=== PATIENT | male | born 1975 | race Caucasian/White ===

== ENCOUNTER 2019-12-29 18:15 | Observation (INO) | payer BC ==
[2019-12-29] MEDS ORDERED: NA CHLORIDE 0.9% 500 ML ONE (19:38)
[2019-12-29] MEDS ORDERED: dexAMETHasone 4 MG/ML VIAL ONE (19:38)
--- NOTE | 2019-12-29 20:08 | RAD REPORT ---
EXAM DESCRIPTION: Chris Single View12/29/2019 7:58 pm CLINICAL HISTORY: Cough COMPARISON: none FINDINGS: Moderate bilateral patchy lung opacities The heart is normal size IMPRESSION: Moderate bilateral patchy lung opacities may represent Covid pneumonia
[2019-12-29 20:18] LABS: Absolute Lymphocytes (CBC) 0.7 K/uL (0.7-4.9); Basophils % 0.1 % (0-1.3); Hematocrit 46.8 % (39.6-49.0); Lymphocytes % 5.9 % (15.3-44.8); MPV 8.5 fL (7.6-11.3); RBC Red Blood Cell Count 5.66 M/uL (4.33-5.43)
[2019-12-29 20:26] LABS: Protime INR 1.03
[2019-12-29 20:32] LABS: BUN Blood Urea Nitrogen 21 mg/dL (7-18); Bicarbonate 24 mmol/L (21-32); Glucose Level 220 mg/dL (74-106); NT PRO-BNP 88 pg/mL (<125); Potassium 4.4 mmol/L (3.5-5.1); Sodium Level 134 mmol/L (136-145); Troponin (Emerg Dept Use Only) < 0.02 ng/mL (0.0-0.045)
[2019-12-29 20:44] LABS: Blood Morphology Comment NOT SEEN (NOT SEEN); Platelet Estimate ADEQ
--- NOTE | 2019-12-29 21:01 | RAD REPORT ---
EXAM DESCRIPTION: CT - Chest For Pe Angio - 12/29/2019 8:45 pm CLINICAL HISTORY: Shortness of breath COMPARISON: None. TECHNIQUE: Dynamically enhanced axial 3 mm thick images of the chest were obtained during administra tion of <100> mL Isovue 370 IV contrast. Coronal and oblique reconstruction images were generated and reviewed. Exam utilizes a protocol for optimal evaluation of pulmonary arterial tree. Maximum intensity projections 3D imaging was utilized All CT scans are performed using dose optimization technique as appropriate and may include automated exposure control or mA/KV adjustment according to patient size. FINDINGS: The opacification of pulmonary arteries is suboptimal. No gross pulmonary embolus noted A thoracic aortic aneurysm is not noted. A pleural effusion is not seen. A pericardial effusion is not seen. Moderate bilateral patchy predominantly ground-glass opacities Gallbladder is filled with gallstones. The gallbladder wall is not thickened IMPRESSION: No gross evidence of a pulmonary embolism Moderate patchy predominantly ground-glass opacities within the lungs may represent Covid pneumonia.
--- NOTE | 2019-12-29 21:27 | EDPHYS ---
Physician Documentation [facility] Name: Sebastian Riojas Age: 44 yrs Sex: Male : 1975 Arrival Date: 12/29/2019 Time: 18:18 Bed 6 Private MD: ED Physician Sudheer Lara HPI: 12/28 19:42 This 44 yrs old Male presents to ER via Wheelchair with complaints of rn Breathing Difficulty, COVID+. 19:42 The patient has shortness of breath at rest, with light activity. Onset: The rn symptoms/episode began/occurred 11 day(s) ago. The patient's shortness of breath is aggravated by exertion, light activity. Severity of symptoms: At their worst the symptoms were moderate in the emergency department the symptoms are unchanged. The patient has not experienced similar symptoms in the past. The patient has been recently seen by a physician:. Historical: - Allergies: 18:31 No Known Allergies; jd3 - Home Meds: 18:31 Farxiga oral oral [Active]; Lisinopril Oral [Active]; ezetimibe oral oral [Active]; jd3 pioglitazone oral oral [Active]; - PMHx: 18:31 Diabetes - NIDDM; Hypertension; High Cholesterol; jd3 - Immunization history:: Adult Immunizations up to date. - Social history:: Smoking status: Patient/guardian denies using tobacco, but has a distant history of tobacco abuse. - Family history:: not pertinent. - Hospitalizations: : No recent hospitalization is reported. ROS: 19:42 Constitutional: Negative for fever, chills, and weight loss, Eyes: Negative for injury, rn pain, redness, and discharge, Neck: Negative for injury, pain, and swelling, Cardiovascular: Negative for chest pain, palpitations, and edema, Respiratory: + sob and cough Abdomen/GI: Negative for abdominal pain, nausea, vomiting, diarrhea, and constipation, MS/Extremity: Negative for injury and deformity, Skin: Negative for injury, rash, and discoloration, Neuro: + generalized weakness Exam: 19:42 Constitutional: This is a well developed, well nourished patient who is awake, alert, rn mild tachypnea Head/Face: Normocephalic, atraumatic. Eyes: Pupils equal round and reactive to light, extra-ocular motions intact. Lids and lashes normal. Conjunctiva and sclera are non-icteric and not injected. Cornea within normal limits. Periorbital areas with no swelling, redness, or edema. ENT: NO stridor Cardiovascular: Tachycardic, regular Respiratory: Mild tachypnea, no retractions Abdomen/GI: soft, non-tender Skin: Warm, dry MS/ Extremity: Pulses equal, no cyanosis. Neurovascular intact. Full, normal range of motion. Equal circumference. Neuro: Awake and alert, GCS 15 Vital Signs: 18:31 BP 126 / 70; Pulse 122; Resp 25 S; Temp 98.7(O); Pulse Ox 92% on R/A; Weight 112.49 kg jd3 (R); Height 5 ft. 10 in. (177.80 cm) (R); Pain 0/10; 19:01 Pulse 115; Pulse Ox 96% on 2 lpm NC; jd3 20:28 BP 126 / 59; Pulse 106; Resp 20; Pulse Ox 94% on 2 lpm NC; mg2 21:25 BP 121 / 90; Pulse 94; Resp 20; Pulse Ox 94% on 2 lpm NC; mg2 18:31 Body Mass Index 35.58 (112.49 kg, 177.80 cm) jd3 MDM: 19:02 Patient medically screened. rn 21:25 Differential diagnosis: pneumonia, COVID-19 pneumonia, PE. Data reviewed: vital signs, rn nurses notes, lab test result(s), EKG, radiologic studies, CT scan, plain films, and as a result, I will admit patient. Counseling: I had a detailed discussion with the patient and/or guardian regarding: the historical points, exam findings, and any diagnostic results supporting the discharge/admit diagnosis, lab results, radiology results, the need for further work-up and treatment in the hospital. Response to treatment: the patient's symptoms have mildly improved after treatment, and as a result, I will admit patient. Admission orders: after a detailed discussion of the patient's condition and case, the admit orders are written by me. ED course: Pt with O2 sats 91% on 2L NC, + COVID-19 pneumonia, neg for PE. . 12/28 19:22 Order name: Blood Culture Adult (2) rn 12/28 18: Order name: BMP; Complete Time: 20:48 rn 10/30 19:22 Order name: CBC with Diff; Complete Time: 20:48 rn 12/28 19:22 Order name: D-Dimer; Complete Time: 20:48 rn 12/28 19:22 Order name: NT PRO-BNP; Complete Time: 20:48 rn 12/28 19:22 Order name: PT-INR; Complete Time: 20:48 rn 12/28 19:22 Order name: XRAY CXR (1 view); Complete Time: 20:13 rn 12/28 19:22 Order name: Ptt, Activated; Complete Time: 20:48 rn 12/28 19:22 Order name: Troponin (emerg Dept Use Only); Complete Time: 20:48 rn 12/28 19:22 Order name: Procalcitonin; Complete Time: 21:27 rn 12/28 19:22 Order name: Blood Culture [facility] 12/28 20:14 Order name: CT Chest For PE Angio; Complete Time: 21:02 rn 12/28 20:22 Order name: Manual Differential; Complete Time: 20:48 [facility] 12/28 19:22 Order name: EKG; Complete Time: 19:22 rn 12/28 19:22 Order name: Cardiac monitoring; Complete Time: 20:08 rn 12/28 19:22 Order name: EKG - Nurse/Tech; Complete Time: 20:25 rn 12/28 19:22 Order name: IV Saline Lock; Complete Time: 20:08 rn 12/28 19:22 Order name: Labs collected and sent; Complete Time: 20:25 rn 12/28 19:22 Order name: O2 Per Protocol; Complete Time: 20:25 rn 12/28 19:22 Order name: O2 Sat Monitoring; Complete Time: 20:25 rn Administered Medications: 20:00 Drug: Decadron - Dexamethasone 10 mg Route: IVP; Site: right antecubital; mg2 22:20 Follow up: Response: No adverse reaction mg2 20:07 Drug: NS 0.9% 500 ml Route: IV; Rate: bolus; Site: right antecubital; mg2 22:19 Follow up: Response: No adverse reaction; IV Status: Completed infusion; IV Intake: mg2 500ml Disposition: 12/29/19 21:27 Hospitalization ordered by Kevin Castañeda for Inpatient Admission. Preliminary diagnosis are Coronavirus infection, unspecified, Viral pneumonia, not elsewhere classified - COVID-19, Hypoxemia. - Bed requested for Intensive Care Unit. - Status is Inpatient Admission. mg2 - Condition is Stable. - Problem is new. - Symptoms have improved. Signatures: Dispatcher [employer] EDMS Sudheer Lara MD MD rn Aj Devlin, FORM SETTER STEEL PAN FORMS-C FORM SETTER STEEL PAN FORMS-Cla1 Marley Trimble, RN RN cg Dima Jenkins, RN RN jd3 Aren Mcneal RN RN mg2 Corrections: (The following items were deleted from the chart) 22:16 21:27 Hospitalization Ordered by Kevin Castañeda DO for Inpatient Admission. Preliminary cg diagnosis is Coronavirus infection, unspecified; Viral pneumonia, not elsewhere classified - COVID-19; Hypoxemia. Bed requested for Telemetry/MedSurg (Inpatient). Status is Inpatient Admission. Condition is Stable. Problem is new. Symptoms have improved. rn 22:28 22:16 12/29/2019 21:27 Hospitalization Ordered by Kevin Castañeda DO for Inpatient mg2 Admission. Preliminary diagnosis is Coronavirus infection, unspecified; Viral pneumonia, not elsewhere classified - COVID-19; Hypoxemia. Bed requested for Intensive Care Unit. Status is Inpatient Admission. Condition is Stable. Problem is new. Symptoms have improved. cg
--- NOTE | 2019-12-29 21:27 | ER ---
Nurse's Notes [facility] Name: Sebastian Riojas Age: 44 yrs Sex: Male : 1975 Arrival Date: 12/29/2019 Time: 18:18 Bed 6 Private MD: Diagnosis: Coronavirus infection, unspecified;Viral pneumonia, not elsewhere [id number];Hypoxemia Presentation: 12/28 18:28 Chief complaint: Spouse and/or significant other states: "He has been sick for 11 days jd3 and he was tested + for COVID as of today and he hasn't been able to catch his breath. most of the other symptoms have been getting better though.". Coronavirus screen: cough unrelated to allergies, difficulty breathing, Client presents with at least one sign or symptom that may indicate coronavirus-19. Standard/surgical mask placed on the client. Provider contacted for isolation considerations. Client reports previous positive COVID test result. results today. Ebola Screen: Patient negative for fever greater than or equal to 101.5 degrees Fahrenheit, and additional compatible Ebola Virus Disease symptoms. Initial Sepsis Screen: Does the patient meet any 2 criteria? No. Patient's initial sepsis screen is negative. Does the patient have a suspected source of infection? No. Patient's initial sepsis screen is negative. Risk Assessment: Do you want to hurt yourself or someone else? Patient reports no desire to harm self or others. Onset of symptoms was December 18, 2019. 18:28 Method Of Arrival: Wheelchair jd3 18:28 Acuity: GENO 2 jd3 Triage Assessment: 20:27 General: Behavior is calm, cooperative. Respiratory: Onset: The symptoms/episode mg2 began/occurred gradually, the patient has mild shortness of breath. Historical: - Allergies: 18:31 No Known Allergies; jd3 - Home Meds: 18:31 Farxiga oral oral [Active]; Lisinopril Oral [Active]; ezetimibe oral oral [Active]; jd3 pioglitazone oral oral [Active]; - PMHx: 18:31 Diabetes - NIDDM; Hypertension; High Cholesterol; jd3 - Immunization history:: Adult Immunizations up to date. - Social history:: Smoking status: Patient/guardian denies using tobacco, but has a distant history of tobacco abuse. - Family history:: not pertinent. - Hospitalizations: : No recent hospitalization is reported. Screenin:27 Abuse screen: Denies threats or abuse. Denies injuries from another. Nutritional mg2 screening: No deficits noted. Tuberculosis screening: No symptoms or risk factors identified. Fall Risk IV access (20 points). Assessment: 20:25 General: Appears in no apparent distress. comfortable. Pain: Denies pain. Neuro: Level mg2 of Consciousness is awake, alert, obeys commands, Oriented to person, place, time, situation. Cardiovascular: Rhythm is sinus tachycardia. Respiratory: Airway is patent Respiratory effort is even, unlabored, Respiratory pattern is regular, symmetrical. Respiratory: Reports shortness of breath. GI: No signs and/or symptoms were reported involving the gastrointestinal system. : No signs and/or symptoms were reported regarding the genitourinary system. EENT: No signs and/or symptoms were reported regarding the EENT system. Derm: Skin is intact, is healthy with good turgor, Skin is pink, warm \\T\\ dry. normal. Musculoskeletal: Circulation, motion, and sensation intact. Capillary refill < 3 seconds. 21:25 Reassessment: Patient appears in no apparent distress at this time. Patient and/or mg2 family updated on plan of care and expected duration. Pain level reassessed. Patient is alert, oriented x 3, equal unlabored respirations, skin warm/dry/pink. seen by MANPREET Rocha hospitalist on duty. 22:19 Reassessment: Primary nurse from ICU will call back to receive report. mg2 Vital Signs: 18:31 BP 126 / 70; Pulse 122; Resp 25 S; Temp 98.7(O); Pulse Ox 92% on R/A; Weight 112.49 kg jd3 (R); Height 5 ft. 10 in. (177.80 cm) (R); Pain 0/10; 19:01 Pulse 115; Pulse Ox 96% on 2 lpm NC; jd3 20:28 BP 126 / 59; Pulse 106; Resp 20; Pulse Ox 94% on 2 lpm NC; mg2 21:25 BP 121 / 90; Pulse 94; Resp 20; Pulse Ox 94% on 2 lpm NC; mg2 18:31 Body Mass Index 35.58 (112.49 kg, 177.80 cm) jd3 ED Course: 18:18 Patient arrived in ED. ag5 18:29 Triage completed. jd3 18:34 Arm band placed on. jd3 18:40 Patient placed in a wheelchair, on oxygen, on pulse oximetry, in triage room. jd3 19:02 Sudheer Lara MD is Attending Physician. rn 19:22 Aren Mcneal, EULOGIO is Primary Nurse. mg2 19:58 XRAY CXR (1 view) In Process Unspecified. EDMS 20:00 Inserted saline lock: 20 gauge in right antecubital area, using aseptic technique. mg2 Blood collected. by EULOGIO Rae. 20:27 No provider procedures requiring assistance completed. mg2 20:28 Patient has correct armband on for positive identification. mg2 20:46 CT Chest For PE Angio In Process Unspecified. EDMS 21:26 Kevin Castañeda DO is Hospitalizing Provider. rn 22:25 Patient admitted, IV remains in place. mg2 Administered Medications: 20:00 Drug: Decadron - Dexamethasone 10 mg Route: IVP; Site: right antecubital; mg2 22:20 Follow up: Response: No adverse reaction mg2 20:07 Drug: NS 0.9% 500 ml Route: IV; Rate: bolus; Site: right antecubital; mg2 22:19 Follow up: Response: No adverse reaction; IV Status: Completed infusion; IV Intake: mg2 500ml Intake: 22:19 IV: 500ml; Total: 500ml. mg2 Outcome: 21:27 Decision to Hospitalize by Provider. rn 22:24 Admitted to ICU accompanied by tech, via stretcher, room 1, with oxygen, with chart, mg2 Report called to EULOGIO Wheeler 22:24 Condition: stable 22:24 Instructed on the need for admit, Demonstrated understanding of instructions. 22:28 Patient left the ED. mg2 Signatures: Dispatcher [employer] EDKS Sudheer Lara MD MD rn Davies, Jonathon, RN RN jAren Ordaz, EULOGIO RN mg2 Jesse Dejesus ag5 Corrections: (The following items were deleted from the chart) 18:34 18:28 Acuity: GENO 3 jd3 jd3 20:28 20:28 BP 126 / 59; Pulse 106bpm; Resp 20bpm; Pulse Ox 94% RA; mg2 mg2
--- NOTE | 2019-12-29 22:01 | P.HP ---
Certification for Inpatient Patient admitted to: Observation With expected LOS: <2 Midnights Patient will require the following post-hospital care: None Practitioner: I am a practitioner with admitting privileges, knowledge of patient current condition, hospital course, and medical plan of care. Services: Services provided to patient in accordance with Admission requirements found in Title 42 Section 412.3 of the Code of Federal Regulations <Aj Devlin - Last Filed: 12/29/19 21:57> Patient admitted to: Observation <Kevin Castañeda - Last Filed: 01/02/20 08:48> Patient History Date of Service: 12/29/19 Reason for admission: COVID Pneumonia History of Present Illness: 41-year-old male with history of hypertension, diabetes mellitus type 2, hyperlipidemia presents emergency department for shortness of breath. Patient reports he has been feeling ill for the last 11 days with intermittent fever, lethargy, dry cough. Patient's tested positive for Ortez virus approximately 2 weeks ago. Patient reports that he is feeling much better this morning when he woke up but gradually became more more short of breath throughout the day. Patient was evaluated in the emergency department and found to have CT findings with ground-glass opacities suggestive of ortez virus pneumonia. Patient was mildly hypoxic at 91-92% on room air but feeling very short of breath. As patient just started with shortness of breath today and he is already hypoxic ED provider wishes to admit patient for further evaluation and management. When I saw the patient in the emergency department he was awake, alert, oriented x3. Patient was on nasal cannula at 3 L satting approximately 95%. Patient was given steroids in the emergency department, will be admitted for further evaluation and management. - Past Medical/Surgical History -: Diabetes mellitus type 2 -: Hypertension -: Hyperlipidemia -: Lung surgery as an Psychosocial/ Personal History: Patient lives at home with his - Family History Father -: Diabetes, Stroke Mother -: Diabetes - Social History Smoking Status: Never smoker Alcohol use: Yes CD- Drugs: No Caffeine use: Yes Place of Residence: Home <ClausAj - Last Filed: 12/29/19 21:57> Date of Service: 01/02/20 Home medications list reviewed: Yes - Family History Family History: Reviewed- Non-Contributory <Kevin Castañeda - Last Filed: 01/02/20 08:48> Review of Systems 10-point ROS is otherwise unremarkable Respiratory: Cough, Shortness of Breath, SOB with Excertion <Aj Devlin - Last Filed: 12/29/19 21:57> Physical Examination - Physical Exam General: Alert, In no apparent distress HEENT: Atraumatic, PERRLA, Mucous membr. moist/pink Neck: Supple, 2+ carotid pulse no bruit, No LAD Respiratory: Clear to auscultation bilaterally, Diminished (Bilaterally) Cardiovascular: Regular rate/rhythm, Normal S1 S2 Gastrointestinal: Normal bowel sounds, No tenderness Musculoskeletal: No tenderness Integumentary: No rashes Neurological: Normal gait, Normal speech, Normal strength at 5/5 x4 extr, Normal tone, Normal affect - Studies Laboratory Data (last 24 hrs) 12/29/19 19:45: PT 12.1, INR 1.03, APTT 29.2 12/29/19 19:45: WBC 12.0 H, Hgb 16.2, Hct 46.8, Plt Count 200 12/29/19 19:45: Sodium 134 L, Potassium 4.4, BUN 21 H, Creatinine 0.99, Glucose 220 H <Aj Devlin - Last Filed: 12/29/19 21:57> Assessment and Plan - Plan Assessment COVID pneumonia Diabetes mellitus type 2 Hypertension Hyperlipidemia Plan COVID pneumonia: Continue with IV steroids, supplements, oxygen therapy. Pulmonology consult in place. Respiratory therapy consult in place, continue with daily room air saturations. Will assess patient's see if you will require home oxygen. DVT prophylaxis Lovenox 40 mg subcutaneous once daily. Appreciate further input from pulmonology. Diabetes mellitus type 2: A.c. HS Accu-Cheks, sliding scale insulin therapy. Will check A1c with morning labs . Hypertension: Obtain and continue home medications. Hyperlipidemia: Obtain and continue home medications. Discharge Plan: Home Plan to discharge in: 24 Hours - Advance Directives Does patient have a Living Will: No Does patient have a Durable POA for Healthcare: No - Code Status/Comfort Care Code Status Assessed: Yes (Full code) Critical Care: No Time Spent Managing Pts Care (In Minutes): 55 <Aj Devlin - Last Filed: 12/29/19 21:57> - Plan Case discussed in detail with ELECTRICAL SYSTEMS ENGINEER. Agree with evaluation, assessment and plan of care. Case reviewed with Pulmonary as well. Plan for DC. Please see DC note for details. <Kevin Castañeda - Last Filed: 01/02/20 08:48>
[2019-12-29] MEDS ORDERED: MELATONIN 5 MG TABLET PO PRN (23:00)
[2019-12-29] MEDS ORDERED: HYDROCODONE/APAP 7.5/325 MG TAB PO PRN (23:00)
[2019-12-29] MEDS ORDERED: ONDANSETRON 4 MG/2 ML VIAL IV PRN (23:00)
[2019-12-29] MEDS ORDERED: BENZONATATE 100 MG CAP PO PRN (23:00)
[2019-12-29] MEDS ORDERED: ACETAMINOPHEN 500 MG TAB PO PRN (23:00)
[2019-12-29 23:38] VITALS: BMI 35.0
[2019-12-30] MEDS: METHYLPREDNISOLONE 40 MG INJ IV SCH ×2 (01:11→08:42)
[2019-12-30 05:14] LABS: Absolute Lymphocytes (CBC) 0.8 K/uL (0.7-4.9); Basophils % 0.1 % (0-1.3); Hematocrit 47.3 % (39.6-49.0); Lymphocytes % 7.8 % (15.3-44.8); MPV 8.6 fL (7.6-11.3); RBC Red Blood Cell Count 5.65 M/uL (4.33-5.43)
[2019-12-30 06:32] LABS: Ferritin 1097.2 ng/mL (26-388); Phosphorus 3.9 mg/dL (2.5-4.9); Potassium 5.1 mmol/L (3.5-5.1)
[2019-12-30] MEDS ORDERED: D50W 25 GM/50 ML SYRINGE/VIAL IV PRN (06:34)
[2019-12-30] MEDS ORDERED: GLUCAGON 1 MG/VIAL IM PRN (06:34)
[2019-12-30] MEDS: INSULIN -REGULAR HUMAN 50 UNIT/0.5 ML ML SQ SCH ×2 (08:00→11:14)
[2019-12-30] MEDS: ASCORBIC ACID 500 MG TABLET PO SCH ×2 (08:42→12:52)
[2019-12-30] MEDS ORDERED: INSULIN GLARGINE 100 UNITS/ML SQ SCH (09:00)
[2019-12-30] MEDS ORDERED: ZINC SULFATE 220 MG CAP PO SCH (09:00)
[2019-12-30] MEDS ORDERED: VITAMIN D 1000 UNIT TAB PO SCH (09:00)
[2019-12-30] MEDS ORDERED: ENOXAPARIN 40 MG/0.4 ML SQ SCH (09:00)
[2019-12-30] MEDS ORDERED: THIAMINE 200 MG/2 ML INJ IVP SCH (09:00)
--- NOTE | 2019-12-30 10:32 | P.CNS ---
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 became sick and recovered he started complaining of shortness of breath and appear in emergency room is currently doing well off oxygen is around 94% denies any GI complaints Allergies metformin Allergy (Verified 12/29/19 22:59) diarrhea Home Medications: Dapagliflozin Propanediol [Farxiga] 5 mg PO DAILY 12/29/19 Ezetimibe [Zetia] 10 mg PO DAILY 12/29/19 Lisinopril [Zestril] 20 mg PO DAILY 12/29/19 Pioglitazone HCl [Actos] 45 mg PO DAILY 12/29/19 - Past Medical/Surgical History Diabetic: Yes -: Diabetes mellitus type 2 -: Hypertension -: Hyperlipidemia -: Lung surgery as an infant Psychosocial/ Personal History: Patient lives at home with his - Family History Father Medical History: Diabetes, Stroke Mother Medical History: Diabetes - Social History Smoking Status: Former smoker Alcohol use: Yes CD- Drugs: No Caffeine use: Yes Place of Residence: Home Review of Systems 10-point ROS is otherwise unremarkable Physical Examination Temp Pulse Resp BP Pulse Ox 98.1 F 103 H 28 H 133/99 H 91 12/30/19 08:00 12/30/19 08:00 12/30/19 08:00 12/30/19 08:00 12/30/19 08:00 General: Alert, In no apparent distress, Oriented x3 Respiratory: Clear to auscultation bilaterally Cardiovascular: Normal S1 S2 Laboratory Data (last 24 hrs) 12/29/19 19:45: PT 12.1, INR 1.03, APTT 29.2 12/29/19 19:45: WBC 12.0 H, Hgb 16.2, Hct 46.8, Plt Count 200 12/29/19 19:45: Sodium 134 L, Potassium 4.4, BUN 21 H, Creatinine 0.99, Glucose 220 H - Problems (1) Pneumonia due to human coronavirus Current Visit: Yes Status: Acute Plan: Patient is 44 years of age admitted from pneumonia due to perez virus patient has bilateral inflammatory changes the need insulin plan for discharge may evaluate for home O2 follow with me in 2 weeks labs reviewed CRP elevated prednisone 20 b.i.d. for a week then 10 b.i.d. would taper depending up on his respiratory status need to increase the dose of has the L2 inhibitor to 10 mg a day patient is on Actos most likely he has underlying fatty liver
[2019-12-30 11:19] VITALS: O2SAT 94
--- NOTE | 2019-12-30 11:37 | P.DS ---
Admission Date: 12/29/19 Discharge Date: 12/30/19 Primary Care Provider: Dr. padron Gladwyne Disposition: ROUTINE DISCHARGE Discharge Condition: GOOD Reason for Admission: COVID Pneumonia Consultations: Pulmonary-Dr. Perea Procedures: CT scan: Medical Problem List: Dyspnea secondary to Bilateral COVID-19 pneumonia Diabetes mellitus type 2 with hyperglycemia Hypertension Hyperlipidemia Brief History of Present Illness: 41-year-old male with history of hypertension, diabetes mellitus type 2 non-insulin dependent, hyperlipidemia. Patient presented with increased shortness of breath. Patient fell [place] about 11 days ago with fever, dry cough. His did test positive for COVID about that time. His had similar symptoms. Patient continue to have shortness of breath. Patient was evaluated in the emergency room. Patient admitted for further evaluation and treatment. Hospital Course: Patient presented with dyspnea secondary to bilateral COVID pneumonia. The patient was admitted due to increasing shortness of breath, tachycardia and tachypnea. The patient has done well then the course of his stay. Patient received IV steroids. Patient seen and evaluated by pulmonology. At discharge patient without significant shortness of breath. Patient remains on room air with appropriate oxygen level. At discharge patient will continue with prednisone 20 mg 1 pill twice daily for at least 2 weeks. The patient will also will be on Xarelto 10 mg daily with food for DVT prophylaxis. The patient will continue with supplementation including vitamin-C twice daily, vitamin-D daily, melatonin 5 mg daily, and zinc 220 mg daily. Recommendations for the patient follow up with pulmonology within 1 week. Pulmonology will further determine on the duration of therapy and isolation recommendations at follow up. Education on Xarelto will be provided. Education on COVID 19 provided. Patient will continue with isolation guidelines by the CDC. Patient will continue with other CDC guidelines including social distance seen, face mask use, and hand washing. Strict diabetic control will be required. Recommend follow up with his PCP to further address. Patient with diabetes mellitus type 2. This is not well controlled. Hemoglobin A1c elevated at 9.0. Patient takes medications. Farxiga was increased. Patient was also started on Lantus. At discharge patient will continue with Farxiga 10 mg daily, Actos 45 mg daily, and Lantus solostar pen sc 10 units subcu daily. Recommend to maintain blood sugar less than 140 fasting and less than 200 after meals. Further adjustment in Lantus may be required if blood sugar remains above 200. Strict control of diabetes will be required during COVID treatment. This can be done with the help of his PCP. Patient with hypertension. At discharge patient will continue with lisinopril 20 mg daily. Recommend to maintain blood pressure less than 130/80. Further adjustment can be done by his PCP. Patient with hyperlipidemia. At discharge patient will continue with Zetia 10 mg daily. Patient with BMI 35.1. Lifestyle modification education provided. Vital Signs/Physical Exam: Temp Pulse Resp BP Pulse Ox 98.1 F 103 H 28 H 133/99 H 91 12/30/19 08:00 12/30/19 08:00 12/30/19 08:00 12/30/19 08:00 12/30/19 08:00 General: Alert, In no apparent distress, Oriented x3, Cooperative HEENT: Atraumatic Neck: Supple Respiratory: Other (Patient breathing appropriately on room air pre) Cardiovascular: Normal pulses, Regular rate/rhythm Gastrointestinal: Normal bowel sounds, Soft and benign, Non-distended Integumentary: No tenderness/swelling, No erythema, No warmth, No cyanosis Neurological: Normal speech, Normal strength at 5/5 x4 extr, Normal tone, Normal affect Laboratory Data at Discharge: WBC 9.8 K/uL (4.3-10.9) D 12/30/19 04:52 Hgb 15.9 g/dL (13.6-17.9) 12/30/19 04:52 Hct 47.3 % (39.6-49.0) 12/30/19 04:52 Plt Count 222 K/uL (152-406) 12/30/19 04:52 PT 12.1 SECONDS (9.5-12.5) 12/29/19 19:45 INR 1.03 12/29/19 19:45 APTT 29.2 SECONDS (24.3-36.9) 12/29/19 19:45 Sodium 132 mmol/L (136-145) L 12/30/19 04:52 Potassium 5.1 mmol/L (3.5-5.1) 12/30/19 04:52 BUN 25 mg/dL (7-18) H 12/30/19 04:52 Creatinine 0.98 mg/dL (0.55-1.3) 12/30/19 04:52 Glucose 274 mg/dL (74-106) H 12/30/19 04:52 Phosphorus 3.9 mg/dL (2.5-4.9) 12/30/19 04:52 Triglycerides 138 mg/dL (<150) 12/30/19 04:52 Cholesterol 162 mg/dL (<200) 12/30/19 04:52 HDL Cholesterol 39 mg/dL (40-60) L 12/30/19 04:52 Cholesterol/HDL Ratio 4.15 12/30/19 04:52 Home Medications: Ezetimibe [Zetia*] 10 mg PO DAILY 12/29/19 Lisinopril [Zestril] 20 mg PO DAILY 12/29/19 Pioglitazone HCl [Actos] 45 mg PO DAILY 12/29/19 Ascorbic Acid [Vitamin C*] 500 mg PO BID #28 tablet 12/30/19 Cholecalciferol (Vitamin D3) [Vitamin D 1000 Iu Tab*] 3,000 unit PO DAILY #30 tab 12/30/19 Dapagliflozin Propanediol [Farxiga] 10 mg PO DAILY #60 12/30/19 Insulin Glargine,Hum.rec.anlog [Lantus Solostar] 10 unit SQ BEDTIME #1 packet 12/30/19 Melatonin 5 mg PO BEDTIME PRN #14 tablet 12/30/19 Rivaroxaban [Xarelto] 10 mg PO DAILY #30 tablet 12/30/19 Zinc Sulfate [Zinc Sulfate*] 220 mg PO DAILY #14 cap 12/30/19 predniSONE [Prednisone*] 20 mg PO BID #28 tab 12/30/19 New Medications: Dapagliflozin Propanediol [Farxiga] 10 mg PO DAILY #60 Insulin Glargine,Hum.rec.anlog [Lantus Solostar] 10 unit SQ BEDTIME #1 packet Melatonin 5 mg PO BEDTIME PRN #14 tablet PRN Reason: Insomnia predniSONE [Prednisone*] 20 mg PO BID #28 tab Ascorbic Acid [Vitamin C*] 500 mg PO BID #28 tablet Cholecalciferol (Vitamin D3) [Vitamin D 1000 Iu Tab*] 3,000 unit PO DAILY #30 tab Rivaroxaban [Xarelto] 10 mg PO DAILY #30 tablet Zinc Sulfate [Zinc Sulfate*] 220 mg PO DAILY #14 cap Patient Discharge Instructions: 1. Follow up with PCP in 1 week to follow up this hospitalization. 2. Patient presented with dyspnea secondary to bilateral COVID pneumonia. The patient was admitted due to increasing shortness of breath , tachycardia and tachypnea. The patient has done well then the course of his stay. Patient received IV steroids. Patient seen and evaluated by pulmonology. At discharge patient without significant shortness of breath. Patient remains on room air with appropriate oxygen level. At discharge patient will continue with prednisone 20 mg 1 pill twice daily for at least 2 weeks. The patient will also will be on Xarelto 10 mg daily with food for DVT prophylaxis. The patient will continue with supplementation including vitamin-C twice daily, vitamin-D daily, melatonin 5 mg daily, and zinc 220 mg daily. Recommendations for the patient follow up with pulmonology within 1 week. Pulmonology will further determine on the duration of therapy and isolation recommendations at follow up. Education on Xarelto will be provided. Education on COVID 19 provided. Patient will continue with isolation guidelines by the [facility]. Patient will continue with other CDC guidelines including social distance seen, face mask use, and hand washing. Strict diabetic control will be required. Recommend follow up with his PCP to further address. 3. Patient with diabetes mellitus type 2. This is not well controlled. Hemoglobin A1c elevated at 9.0. Patient takes medications. Farxiga was increased. Patient was also started on Lantus. At discharge patient will continue with Farxiga 10 mg daily, Actos 45 mg daily, and Lantus solostar pen sc 10 units subcu daily. Recommend to maintain blood sugar less than 140 fasting and less than 200 after meals. Further adjustment in Lantus may be required if blood sugar remains above 200. Strict control of diabetes will be required during COVID treatment. This can be done with the help of his PCP. 4. Patient with hypertension. At discharge patient will continue with lisinopril 20 mg daily. Recommend to maintain blood pressure less than 130/80. Further adjustment can be done by his PCP. 5. Patient with hyperlipidemia. At discharge patient will continue with Zetia 10 mg daily. 6. Patient with BMI 35.1. Lifestyle modification education provided. Diet: ADA Activity: Ad kenyon Followup: Unknown,U [Primary Care Provider] - Time spent managing pt's care (in minutes): 55
[2019-12-30 13:08] VITALS: BP 122/96; TEMP 98.3
--- NOTE | 2019-12-31 10:13 | EKG ---
Test Date: 2019-12-29 Test Time: 20:18:30 Prescription Eyeglass Maker: MEASUREMENT RESULTS: Intervals: Rate: 104 NV: 152 QRSD: 98 QT: 338 QTc: 444 [place]: P: 48 NV: 152 QRS: 86 T: -1 INTERPRETIVE STATEMENTS: Sinus tachycardia Abnormal QRS-T angle, consider primary T wave abnormality Abnormal ECG No previous ECG available for comparison Electronically Signed On 12-31-19 10:10:26 [employer] by Darius Mckee
== END 2019-12-30 13:14 | disposition home or self-care (01) ==
LOC: ER 18:15 → EDBD 18:15 → ERHOLD 21:50 → 3RD-ICU 22:24
PROVIDERS: ADMIT Family Medicine; ATTEND Family Medicine
DX: U07.1 COVID-19 (principal); J12.89 Other viral pneumonia; E11.65 Type 2 diabetes mellitus with hyperglycemia; I10 Essential (primary) hypertension; E78.5 Hyperlipidemia, unspecified; R94.31 Abnormal electrocardiogram [ECG] [EKG]; Z87.891 Personal history of nicotine dependence; Z79.84 Long term (current) use of oral hypoglycemic drugs
CPT/HCPCS: 96361; 93005; 87040 ×2; 85025 ×2; 80048 ×2; 36415; 84100; 85610; 80061; 82947 ×2; 85379; 85730; 83036; 84484; 82728; 84145; 83880; 86140; 71275; 71045; 94010; 96374; 99285; U0002; Q9967; J1100; J3411; J1650; J7040; J2920 ×2; G0378 ×3; J1815